=== PATIENT | male | born 1955 | race Caucasian/White ===

== ENCOUNTER 2022-05-26 09:35 | Day surgery (SDC) | payer OTHER ==
[2022-05-21 12:09] LABS: BASOPHILS % (AUTO) 0.7 % (0-1); EOSINOPHILS # (AUTO) 0.3 X10'3 (0-0.9); EOSINOPHILS % (AUTO) 5.7 % (0-6); LYMPHOCYTES # (AUTO) 2.2 X10'3 (1.1-4.8); LYMPHOCYTES % (AUTO) 39.6 % (21-51); MEAN CORPUSCULAR HEMOGLOBIN 33.1 PG (27.0-31.0); MEAN CORPUSCULAR HGB CONC 35.3 g/dL (33.0-36.5); MEAN CORPUSCULAR VOLUME 93.7 FL (78-98); MEAN PLATELET VOLUME 8.4 FL (7.4-10.4); MONOCYTES # (AUTO) 0.8 X10'3 (0-0.9); MONOCYTES % (AUTO) 13.4 % (2-12); NEUTROPHILS # (AUTO) 2.3 X10'3 (1.8-7.7); NEUTROPHILS % (AUTO) 40.6 % (42-75); PRE OP HEMATOCRIT 42.2 % (42.0-52.0); PRE OP HEMOGLOBIN 14.9 g/dL (14.0-17.9); PRE OP PLATELET COUNT 189 X10'3 (140-440); RED CELL DISTRIBUTION WIDTH 13.1 % (11.5-14.5)
[2022-05-21 12:15] LABS: ALBUMIN 3.7 G/DL (3.4-5.0); ALBUMIN/GLOBULIN RATIO 1.1 (1.1-1.5); ALKALINE PHOSPHATASE 54 IU/L (46-116); BLOOD UREA NITROGEN 18 MG/DL (7-18); BUN/CREATININE RATIO 21.7 (5.4-32.0); CALCIUM 8.8 MG/DL (8.5-10.1); CHLORIDE 108 MMOL/L (99-107); CREATININE 0.83 MG/DL (0.60-1.10); PRE OP ALT 21 U/L (30-65); PRE OP ANION GAP 7 (8-16); PRE OP AST 14 U/L (10-37); PRE OP BILIRUB, TOTAL 0.5 MG/DL (0.0-1.0); PRE OP GLUCOSE 102 MG/DL (70-104); PRE OP POTASSIUM 4.2 MMOL/L (3.4-5.1); PRE OP SODIUM 141 MMOL/L (135-145); TOTAL CARBON DIOXIDE 26.3 MMOL/L (24-32); TOTAL PROTEIN 7.1 G/DL (6.4-8.2); eGFR > 90 ML/MIN
[~2022-05-26] VITALS: Ht 177.8 cm; Wt 108.0 kg
[2022-05-26] VITALS (14 sets, daily range): BP systolic 116–147; BP diastolic 65–95
[~2022-05-26 09:35] MED LIST: LIDOcaine 1% W/epiNEPHrine 1:100,000 20ml vial ONE; SAW450CA7 PO; TERB250T89 PO; ceFAZolin inj. 2,000 MG in dextrose 5%-water 100 ML IV ONE; cocaine 4% topical solution 4ml bottle ONE; famotidine 20mg tablet PO ONE; mupirocin 2% ointment 22GM ONE; oxymetazoline 15 ML nasal spray NS ONE; ringers solution, lacted 1,000 ML IV SCH
[2022-05-26] MEDS ORDERED: morphine 2 MG/ML inj. syringe IV PRN (11:15)
[2022-05-26] MEDS ORDERED: ondansetron/PF 4mg/2ml inj IV PRN (11:15)
[2022-05-26] MEDS ORDERED: ringers solution, lacted 1,000 ML IV SCH (11:15)
[2022-05-26] MEDS ORDERED: meperidine/PF 25mg/ml syringe IV PRN ×3 (11:15)
[2022-05-26] MEDS ORDERED: morphine 4 MG/ML inj SYRINge IV PRN (11:15)
[2022-05-26] MEDS ORDERED: proCHLORperazine 10 MG/2 ml inj IV PRN (11:15)
[2022-05-26] MEDS ORDERED: BUPIVAcaine/PF 2.5 mg/ml (0.25%) 30ml vial ONE (11:19)
[2022-05-26] MEDS ORDERED: LIDOcaine 1% 30ml preserv. free vial ONE (11:19)
[2022-05-26] MEDS ORDERED: midazolam 1 mg/ML 2ml injection ONE (11:30)
[2022-05-26] MEDS ORDERED: fentaNYL /PF 50mcg/ml 5ml ampule ONE (11:30)
[2022-05-26] MEDS ORDERED: LIDOcaine 2% (20mg/ml) 5ml vial ONE (11:31)
[2022-05-26] MEDS ORDERED: propofol inj 20 ML IV ONE (11:31)
[2022-05-26] MEDS ORDERED: sevoflurane 250ml liquid IH ONE (11:33)
[2022-05-26] MEDS ORDERED: ondansetron/PF 4mg/2ml inj ONE (11:33)
[2022-05-26] MEDS ORDERED: dexamethasone sod phosphate 10mg/ml inj ONE (11:33)
[2022-05-26] MEDS ORDERED: glycopyrrolate 0.2mg/ml inj ONE (11:33)
[2022-05-26] MEDS ORDERED: neostigmine methylsulfate 1 MG/ML 10ml vial ONE (11:33)
[2022-05-26] MEDS ORDERED: acetaminophen 1000 MG/100ml vial IV ONE (11:33)
[2022-05-26] MEDS ORDERED: rocuronium 10mg/ml inj IV ONE (11:43)
[2022-05-26] MEDS ORDERED: HYDROcodone/acetaminophen 5mg/325mg tablet PO PRN (13:15)
--- NOTE | 2022-05-26 13:20 | NUR ---
Received from OR via [facility] , accompanied by Anesthesiologist DR MCCORMACK and report given by Anesthesiolgist. PT PRESENTS WITH PIV 20G RIGHT WRIST, 3 ABD BANDAIDS, VSS. Addendum: 05/26/22 at 1328 by Evon Bright RN, RN Amended: Links added.
--- NOTE | 2022-05-26 15:20 | NUR ---
ALL DISCHARGE CRITERIA HAS BEEN MET. VSS, PAIN AT A TOLERABLE LEVEL, VOIDING AND ABLE TO SAFELY AMBULATE AND TRANSFER SELF. IV TAKEN OUT WITHOUT ANY COMPLICATIONS. ALL DISCHARGE INSTRUCTIONS COVERED WITH PATIENT AND ALL QUESTIONS ANSWERED. PATIENT TAKEN OUT VIA WHEELCHAIR TO PERSONAL VEHICLE WHERE FAMILY/FRIEND DROVE PATIENT HOME. Addendum: 05/26/22 at 1529 by Evon Bright RN, RN Amended: Links added.
== END 2022-05-26 15:20 | disposition home or self-care (01) ==
LOC: PAS 09:35
PROVIDERS: ATTEND Surgery
DX: K40.91 Unilateral inguinal hernia, without obstruction or gangrene, recurrent (principal); Z79.899 Other long term (current) drug therapy; Z98.890 Other specified postprocedural states; Z96.653 Presence of artificial knee joint, bilateral; Z96.641 Presence of right artificial hip joint; M19.90 Unspecified osteoarthritis, unspecified site
CPT/HCPCS: 36415; 49651; 80053; 82948; 85025; 87811; 93005; C1781; J0131; J0690; J1100; J2250; J2405; J2704; J2710; J3010; J3490; J7030; J7060; J7120; S2900; Z7506; Z7508; Z7512; A4215; A4618

== ENCOUNTER 2022-08-15 22:33 | Inpatient (IN) | payer BC, OTHER ==
[~2022-08-15] VITALS: Ht 177.8 cm; Wt 109.1 kg
[~2022-08-15 22:33] MED LIST changes: -LIDOcaine 1% W/epiNEPHrine 1:100,000 20ml vial ONE; -ceFAZolin inj. 2,000 MG in dextrose 5%-water 100 ML IV ONE; -cocaine 4% topical solution 4ml bottle ONE; -famotidine 20mg tablet PO ONE; -mupirocin 2% ointment 22GM ONE; -oxymetazoline 15 ML nasal spray NS ONE; -ringers solution, lacted 1,000 ML IV SCH
[2022-08-15] MEDS ORDERED: acetaminophen 325mg tablet PO ONE (23:25)
[2022-08-15] MEDS ORDERED: vancomycin/NS 1 GM ADD-VANTAGE 250 ML IV ONE (23:45)
[2022-08-16 00:18] LABS: ALANINE AMINOTRANSFERASE 68 U/L (12-78); ALBUMIN 2.6 G/DL (3.4-5.0); ALBUMIN/GLOBULIN RATIO 0.6 (1.1-1.5); ALKALINE PHOSPHATASE 134 IU/L (46-116); ANION GAP 12 (8-16); ASPARTATE AMINO TRANSFERASE 34 U/L (10-37); BILIRUBIN,TOTAL 1.1 MG/DL (0.1-1.0); BLOOD UREA NITROGEN 19 MG/DL (7-18); BUN/CREATININE RATIO 15.7 (5.4-32.0); CALCIUM 8.7 MG/DL (8.5-10.1); CHLORIDE 101 MMOL/L (99-107); CREATININE 1.21 MG/DL (0.60-1.10); GLUCOSE 145 MG/DL (70-104); POTASSIUM 3.1 MMOL/L (3.5-5.1); SODIUM 137 MMOL/L (135-145); TOTAL CARBON DIOXIDE 23.6 MMOL/L (24-32); TOTAL PROTEIN 7.1 G/DL (6.4-8.2); eGFR 60 ML/MIN
[2022-08-16] MEDS ORDERED: normal saline 1000ml 1,000 ML IV ONE ×3 (00:20)
[2022-08-16] MEDS ORDERED: POTASSIUM BICARB 20meq eff tab 20 MEQ TABLET.EFF PO ONE (00:25)
[2022-08-16] MEDS ORDERED: iohexol 350MG/ML 100ml bottle IV ONE (00:28)
[2022-08-16 00:29] LABS: CLARITY,URINE SLIGHTLY CLOUDY (Clear); GLUCOSE, URINE NEGATIVE (Neg); KETONES,URINE TRACE mg/dl (Neg); LEUKOCYTE ESTERASE ,URINE NEGATIVE (Neg); NITRITES, URINE NEGATIVE (Neg); OCCULT BLOOD,URINE LARGE (Neg); PROTEIN,URINE 100 mg/dl (Neg)
[2022-08-16 00:46] LABS: COLOR,URINE DARK YELLOW (Yellow); UA COLLECTION TYPE CLN CATCH MIDSTREAM
[2022-08-16 00:47] LABS: AMORPHOUS URATES 1+; BACTERIA,URINE FEW /HPF (Neg); RENAL CELLS, URINE FEW /HPF; SQUAMOUS EPITHELIAL CELL,UR FEW /LPF (FEW); TRANSITIONAL EPI CELLS,URINE FEW /HPF; WBC,URINE 0-4 /HPF (0-4)
[2022-08-16 00:48] LABS: CELLULAR CAST 0-4 /LPF (NEGATIVE); COARSE GRANULAR CAST 0-3 /LPF (NEGATIVE); MUCUS STRANDS MANY /LPF (Neg)
[2022-08-16 01:02] LABS: BASOPHILS % (AUTO) 0.4 % (0-1); EOSINOPHILS # (AUTO) 0.1 X10'3 (0-0.9); EOSINOPHILS % (AUTO) 1.9 % (0-6); HEMATOCRIT 38.8 % (42.0-52.0); HEMOGLOBIN 13.9 g/dl (14.0-17.9); LYMPHOCYTES # (AUTO) 0.6 X10'3 (1.1-4.8); LYMPHOCYTES % (AUTO) 19.4 % (21-51); MEAN CORPUSCULAR HGB CONC 35.7 g/dL (33.0-36.5); MEAN CORPUSCULAR VOLUME 92.5 FL (78-98); MEAN PLATELET VOLUME 8.7 FL (7.4-10.4); MONOCYTES # (AUTO) 0.1 X10'3 (0-0.9); NEUTROPHILS # (AUTO) 2.2 X10'3 (1.8-7.7); NEUTROPHILS % (AUTO) 76.3 % (42-75); PLATELET COUNT 155 X10'3 (140-440); RED CELL DISTRIBUTION WIDTH 12.5 % (11.5-14.5); WHITE BLOOD COUNT 2.9 X10'3 (4.5-11.0)
[2022-08-16 01:03] LABS: ABG BASE EXCESS 1.3 mmol/L (-2.0-2.0); ABG HCO3 23.2 mmol/L (22.0-26.0); ABG OXYGEN SATURATION 91.5 % (94-97); ABG PCO2 (T) 30.1 mmHg (35.0-48.0); ABG PO2 (T) 62.4 mmHg (75.0-100.0); ALLEN'S TEST POSITIVE; FCOHb 0.5 % (0.0-3.9); FMetHb 0.3 % (0.0-1.5); FO2Hb 90.8 % (94-97); PATIENT TEMPERATURE 37.9; TOTAL HEMOGLOBIN 13.1 G/dl (14.0-17.9)
[2022-08-16 02:10] LABS: CREATINE KINASE 28 U/L (39-308)
[2022-08-16] MEDS: normal saline 1000ml 1,000 ML IV SCH ×4 (02:35→16:42)
[2022-08-16] MEDS ORDERED: potassium Cl 40MEQ/1/2NS 520ml 520 ML IV PRN (05:35)
[2022-08-16] MEDS ORDERED: magnesium Cl slow-release 64mg tablet PO PRN (05:35)
[2022-08-16] MEDS ORDERED: acetaminophen 325mg tablet PO PRN (05:35)
[2022-08-16] MEDS ORDERED: magnesium 4gm in 100ml NS 100 ML IV PRN (05:35)
[2022-08-16] MEDS ORDERED: ondansetron/PF 4mg/2ml inj IV PRN (05:35)
[2022-08-16 05:40] LABS: TOTAL CELLS COUNTED 100
[2022-08-16 05:41] LABS: PLATELET ESTIMATE NORMAL
[2022-08-16] MEDS ORDERED: piperacillin/tazo 4.5gm/100ml 100 ML IV ONE ×3 (06:20→09:00)
[2022-08-16] MEDS: K and/or MAG REPLACEMENT MC SCH ×2 (08:00→20:00)
[2022-08-16] MEDS: heparin, porcine 5000 units/ml vial SQ SCH ×2 (08:00→20:00)
[2022-08-16] MEDS: cefepime 1GM/NS ADD-VANTAGE 100 ML IV SCH ×2 (08:28→19:05)
[2022-08-16] MEDS: vancomycin/NS 1 GM ADD-VANTAGE 250 ML IV SCH ×2 (09:27→20:00)
--- NOTE | 2022-08-16 13:30 | NUR ---
DIRECT MARKETING MANAGER AT BEDSIDE.
--- NOTE | 2022-08-16 15:28 | NUR ---
DR SCHWARTZ AT BEDSIDE.
--- NOTE | 2022-08-16 15:31 | NUR ---
PT IS HAVING CHILLS TEMP 99.[address] SCHWARTZ ,HR 117 SINUS TACH ,EVEN THOUGH THE MONITOR SAY AFIB ,PT RYTHM IS SINUS TACH.
[2022-08-16] MEDS: acetaminophen 325mg tablet PO PRN ×2 (15:35→21:36)
--- NOTE | 2022-08-16 15:42 | NUR ---
Informed dr graf that pt k+ was 3.1 last night and was replaced by 40 mEQ PO K+,NO AM labs were ordered,as per MD VERBAL Order for CBC,CMP AND MG LEVEL STAT.
[2022-08-16 16:13] LABS: BASOPHILS % (AUTO) 0.4 % (0-1); EOSINOPHILS # (AUTO) 0.1 X10'3 (0-0.9); EOSINOPHILS % (AUTO) 0.7 % (0-6); HEMATOCRIT 33.9 % (42.0-52.0); HEMOGLOBIN 12.1 g/dl (14.0-17.9); LYMPHOCYTES # (AUTO) 0.8 X10'3 (1.1-4.8); LYMPHOCYTES % (AUTO) 7.5 % (21-51); MEAN CORPUSCULAR HEMOGLOBIN 32.7 PG (27.0-31.0); MEAN CORPUSCULAR HGB CONC 35.6 g/dL (33.0-36.5); MEAN PLATELET VOLUME 8.1 FL (7.4-10.4); MONOCYTES % (AUTO) 9.1 % (2-12); NEUTROPHILS # (AUTO) 8.8 X10'3 (1.8-7.7); NEUTROPHILS % (AUTO) 82.3 % (42-75); PLATELET COUNT 177 X10'3 (140-440); RED BLOOD COUNT 3.69 X10'6 (4.70-6.10); RED CELL DISTRIBUTION WIDTH 12.6 % (11.5-14.5); WHITE BLOOD COUNT 10.7 X10'3 (4.5-11.0)
[2022-08-16 16:28] LABS: ALANINE AMINOTRANSFERASE 84 U/L (12-78); ALBUMIN 2.2 G/DL (3.4-5.0); ALBUMIN/GLOBULIN RATIO 0.6 (1.1-1.5); ALKALINE PHOSPHATASE 123 IU/L (46-116); ANION GAP 9 (8-16); ASPARTATE AMINO TRANSFERASE 53 U/L (10-37); BILIRUBIN,TOTAL 0.9 MG/DL (0.1-1.0); BLOOD UREA NITROGEN 14 MG/DL (7-18); BUN/CREATININE RATIO 13.7 (5.4-32.0); CHLORIDE 106 MMOL/L (99-107); CREATININE 1.02 MG/DL (0.60-1.10); GLUCOSE 128 MG/DL (70-104); MAGNESIUM 1.7 MG/DL (1.5-2.4); POTASSIUM 3.3 MMOL/L (3.5-5.1); SODIUM 138 MMOL/L (135-145); TOTAL CARBON DIOXIDE 22.8 MMOL/L (24-32); TOTAL PROTEIN 6.1 G/DL (6.4-8.2); eGFR 74 ML/MIN
[2022-08-16] MEDS: potassium Cl 20 mEq SR tablet PO PRN (17:04)
[2022-08-16] MEDS ORDERED: temazepam 15mg capsule PO PRN (21:00)
[2022-08-16] MEDS ORDERED: POTASSIUM BICARB 20meq eff tab 20 MEQ TABLET.EFF PO PRN (21:40)
[2022-08-16] MEDS: albuterol 2.5 MG/3 ML nebule NEB PRN (22:49)
[2022-08-17] MEDS: normal saline 1000ml 1,000 ML IV SCH ×3 (01:35→21:35)
--- NOTE | 2022-08-17 04:17 | NUR ---
PAGER ID: [phone] MESSAGE: Jimmie Toan in ER 5, DX sepsis, requesting ibuprofen 600 mg for chronic 8/10 neck pain. Kimberlee MONSALVE [phone]
[2022-08-17] MEDS ORDERED: ibuprofen 200mg tablet PO ONE (04:25)
[2022-08-17] MEDS: albuterol 2.5 MG/3 ML nebule NEB PRN (04:27)
[2022-08-17] MEDS ORDERED: VANCOMYCIN LEVEL IV ONE (07:30)
[2022-08-17 07:31] LABS: ALANINE AMINOTRANSFERASE 77 U/L (12-78); ALBUMIN/GLOBULIN RATIO 0.5 (1.1-1.5); ALKALINE PHOSPHATASE 113 IU/L (46-116); ANION GAP 10 (8-16); ASPARTATE AMINO TRANSFERASE 44 U/L (10-37); BILIRUBIN,TOTAL 0.8 MG/DL (0.1-1.0); BLOOD UREA NITROGEN 11 MG/DL (7-18); BUN/CREATININE RATIO 11.1 (5.4-32.0); CALCIUM 7.8 MG/DL (8.5-10.1); CHLORIDE 105 MMOL/L (99-107); CREATININE 0.99 MG/DL (0.60-1.10); GLUCOSE 105 MG/DL (70-104); SODIUM 137 MMOL/L (135-145); TOTAL CARBON DIOXIDE 21.7 MMOL/L (24-32); TOTAL PROTEIN 5.7 G/DL (6.4-8.2); VANCOMYCIN,TROUGH 7.8 UG/ML (6.0-14.0); eGFR 76 ML/MIN
[2022-08-17 07:35] VITALS: BP 122/75
[2022-08-17] MEDS: K and/or MAG REPLACEMENT MC SCH ×2 (08:00→20:00)
[2022-08-17 08:51] LABS: BASOPHILS % (AUTO) 0.2 % (0-1); EOSINOPHILS # (AUTO) 0.1 X10'3 (0-0.9); EOSINOPHILS % (AUTO) 1.1 % (0-6); HEMATOCRIT 32.5 % (42.0-52.0); HEMOGLOBIN 11.6 g/dl (14.0-17.9); LYMPHOCYTES # (AUTO) 0.9 X10'3 (1.1-4.8); LYMPHOCYTES % (AUTO) 10.1 % (21-51); MEAN CORPUSCULAR HGB CONC 35.8 g/dL (33.0-36.5); MEAN PLATELET VOLUME 8.1 FL (7.4-10.4); MONOCYTES # (AUTO) 0.4 X10'3 (0-0.9); MONOCYTES % (AUTO) 4.8 % (2-12); NEUTROPHILS # (AUTO) 7.2 X10'3 (1.8-7.7); NEUTROPHILS % (AUTO) 83.8 % (42-75); PLATELET COUNT 173 X10'3 (140-440); RED BLOOD COUNT 3.53 X10'6 (4.70-6.10); RED CELL DISTRIBUTION WIDTH 12.9 % (11.5-14.5); WHITE BLOOD COUNT 8.6 X10'3 (4.5-11.0)
[2022-08-17] MEDS: heparin, porcine 5000 units/ml vial SQ SCH ×2 (09:01→21:05)
[2022-08-17 11:00] VITALS: BP 124/74
[2022-08-17] MEDS: VANCOmycin 1250MG/NS 250ml Bag 250 ML IV SCH ×2 (11:09→21:00)
[2022-08-17] MEDS: potassium Cl 20 mEq SR tablet PO PRN ×3 (11:16→22:56)
[2022-08-17] MEDS: cefepime 1GM/NS ADD-VANTAGE 100 ML IV SCH ×2 (14:07→22:54)
[2022-08-17] MEDS: acetaminophen 325mg tablet PO PRN (17:33)
--- NOTE | 2022-08-17 18:30 | NUR ---
Patient in room [facility] 350. I have received report from MIKHAIL MONSALVE and had the opportunity to ask questions and assume patient care.
[2022-08-17 19:00] VITALS: BP 144/71
[2022-08-17 23:00] VITALS: BP 135/82
[2022-08-18] MEDS: acetaminophen 325mg tablet PO PRN ×2 (05:16→12:02)
[2022-08-18] MEDS: normal saline 1000ml 1,000 ML IV SCH (05:19)
[2022-08-18 06:00] VITALS: BP 135/90
--- NOTE | 2022-08-18 06:32 | NUR ---
Problems reprioritized. Patient report given, questions answered & plan of care reviewed with MIKHAIL MONSALVE.
[2022-08-18 06:38] LABS: BASOPHILS % (AUTO) 0.3 % (0-1); EOSINOPHILS # (AUTO) 0.2 X10'3 (0-0.9); EOSINOPHILS % (AUTO) 1.4 % (0-6); HEMATOCRIT 34.3 % (42.0-52.0); HEMOGLOBIN 11.9 g/dl (14.0-17.9); LYMPHOCYTES # (AUTO) 1.4 X10'3 (1.1-4.8); LYMPHOCYTES % (AUTO) 13.1 % (21-51); MEAN CORPUSCULAR HEMOGLOBIN 32.6 PG (27.0-31.0); MEAN CORPUSCULAR HGB CONC 34.7 g/dL (33.0-36.5); MEAN CORPUSCULAR VOLUME 94.2 FL (78-98); MEAN PLATELET VOLUME 8.8 FL (7.4-10.4); MONOCYTES # (AUTO) 1.4 X10'3 (0-0.9); MONOCYTES % (AUTO) 12.9 % (2-12); NEUTROPHILS # (AUTO) 7.9 X10'3 (1.8-7.7); NEUTROPHILS % (AUTO) 72.3 % (42-75); PLATELET COUNT 199 X10'3 (140-440); RED BLOOD COUNT 3.64 X10'6 (4.70-6.10); WHITE BLOOD COUNT 10.9 X10'3 (4.5-11.0)
[2022-08-18 07:07] LABS: ALANINE AMINOTRANSFERASE 68 U/L (12-78); ALBUMIN/GLOBULIN RATIO 0.5 (1.1-1.5); ALKALINE PHOSPHATASE 141 IU/L (46-116); ANION GAP 10 (8-16); ASPARTATE AMINO TRANSFERASE 30 U/L (10-37); BILIRUBIN,TOTAL 1.2 MG/DL (0.1-1.0); BLOOD UREA NITROGEN 9 MG/DL (7-18); BUN/CREATININE RATIO 9.7 (5.4-32.0); CHLORIDE 106 MMOL/L (99-107); CREATININE 0.93 MG/DL (0.60-1.10); GLUCOSE 102 MG/DL (70-104); POTASSIUM 3.4 MMOL/L (3.5-5.1); SODIUM 137 MMOL/L (135-145); TOTAL CARBON DIOXIDE 20.6 MMOL/L (24-32); eGFR 82 ML/MIN
[2022-08-18] MEDS: cefepime 1GM/NS ADD-VANTAGE 100 ML IV SCH (07:55)
[2022-08-18] MEDS: heparin, porcine 5000 units/ml vial SQ SCH (07:57)
[2022-08-18] MEDS: K and/or MAG REPLACEMENT MC SCH (08:00)
[2022-08-18] MEDS: potassium Cl 20 mEq SR tablet PO PRN (09:40)
[2022-08-18] MEDS: VANCOmycin 1250MG/NS 250ml Bag 250 ML IV SCH (09:40)
[2022-08-18 10:00] VITALS: BP 149/95
[2022-08-18] MEDS ORDERED: LEVO750T68 PO (11:30)
[2022-08-18] MEDS ORDERED: VANCOMYCIN LEVEL IV ONE (20:30)
== END 2022-08-18 15:30 | disposition home or self-care (01) | DRG 871 ==
LOC: ER 22:34 → ED HOLD 08-16 05:37 → EDBEDREQ 08-16 20:15 → SUR 3N 08-17 07:15
PROVIDERS: ADMIT Internal Medicine; ATTEND Family Medicine
PROC: B32T1ZZ Computerized Tomography (CT Scan) of Left Pulmonary Artery using Low Osmolar Contrast (ICD-10-PCS; 2022-08-16)
PROC: B3201ZZ Computerized Tomography (CT Scan) of Thoracic Aorta using Low Osmolar Contrast (ICD-10-PCS; 2022-08-16)
PROC: B32S1ZZ Computerized Tomography (CT Scan) of Right Pulmonary Artery using Low Osmolar Contrast (ICD-10-PCS; 2022-08-16)
PROC: 5A09357 Assistance with Respiratory Ventilation, Less than 24 Consecutive Hours, Continuous Positive Airway Pressure (ICD-10-PCS; principal; 2022-08-17)
DX: A41.9 Sepsis, unspecified organism (principal); J96.01 Acute respiratory failure with hypoxia; N17.0 Acute kidney failure with tubular necrosis; D70.9 Neutropenia, unspecified; N18.30 Chronic kidney disease, stage 3 unspecified; F10.90 Alcohol use, unspecified, uncomplicated; E87.6 Hypokalemia; F12.90 Cannabis use, unspecified, uncomplicated; K76.9 Liver disease, unspecified; Z20.822 Contact with and (suspected) exposure to COVID-19; R79.89 Other specified abnormal findings of blood chemistry; R80.9 Proteinuria, unspecified
CPT/HCPCS: 36415; 36600; 71045; 71275; 74176; 80053; 80202; 81001; 81003; 82550; 82803; 83605; 83735; 83880; 84145; 84484; 85007; 85018; 85025; 87040; 87502; 87503; 87635; 93306; 94640; 94760; 97116; 97161; 99285; A4615; C9803; G0378; J0692; J1644; J2543; J3370; J3490; J7030; Q9967

== ENCOUNTER 2022-08-31 09:52 | Inpatient (IN) | payer OTHER, BC ==
[~2022-08-31] VITALS: Ht 177.8 cm; Wt 104.1 kg
[~2022-08-31 09:52] MED LIST changes: +LEVO750T68 PO; -TERB250T89 PO
[2022-08-31] MEDS ORDERED: acetaminophen 325mg tablet PO STA (10:41)
[2022-08-31] MEDS ORDERED: normal saline 1000ML IV soln IV ONE (10:45)
[2022-08-31] MEDS ORDERED: CefTRIAXone 2gm/D5W 50ml BAG 50 ML IV ONE (10:45)
[2022-08-31 11:00] LABS: BASOPHILS % (AUTO) 0.6 % (0-1); EOSINOPHILS % (AUTO) 0.2 % (0-6); HEMATOCRIT 34.4 % (42.0-52.0); HEMOGLOBIN 11.7 g/dl (14.0-17.9); LYMPHOCYTES # (AUTO) 0.6 X10'3 (1.1-4.8); LYMPHOCYTES % (AUTO) 9.4 % (21-51); MEAN CORPUSCULAR HEMOGLOBIN 30.9 PG (27.0-31.0); MEAN CORPUSCULAR HGB CONC 33.9 g/dL (33.0-36.5); MEAN CORPUSCULAR VOLUME 90.9 FL (78-98); MEAN PLATELET VOLUME 7.2 FL (7.4-10.4); MONOCYTES # (AUTO) 0.1 X10'3 (0-0.9); MONOCYTES % (AUTO) 0.8 % (2-12); PLATELET COUNT 523 X10'3 (140-440); RED BLOOD COUNT 3.78 X10'6 (4.70-6.10); RED CELL DISTRIBUTION WIDTH 12.8 % (11.5-14.5); WHITE BLOOD COUNT 6.8 X10'3 (4.5-11.0)
[2022-08-31 11:23] LABS: ALANINE AMINOTRANSFERASE 53 U/L (12-78); ALBUMIN 2.3 G/DL (3.4-5.0); ALBUMIN/GLOBULIN RATIO 0.4 (1.1-1.5); ALKALINE PHOSPHATASE 189 IU/L (46-116); ANION GAP 13 (8-16); ASPARTATE AMINO TRANSFERASE 41 U/L (10-37); BLOOD UREA NITROGEN 15 MG/DL (7-18); CALCIUM 8.7 MG/DL (8.5-10.1); CHLORIDE 99 MMOL/L (99-107); CREATININE 1.07 MG/DL (0.60-1.10); GLUCOSE 139 MG/DL (70-104); POTASSIUM 3.5 MMOL/L (3.5-5.1); SODIUM 133 MMOL/L (135-145); TOTAL PROTEIN 7.7 G/DL (6.4-8.2); eGFR 69 ML/MIN
[2022-08-31] MEDS ORDERED: iohexol 350MG/ML 100ml bottle IV ONE (11:55)
[2022-08-31 12:07] LABS: CLARITY,URINE CLEAR (Clear); COLOR,URINE YELLOW (Yellow); GLUCOSE, URINE NEGATIVE (Neg); KETONES,URINE NEGATIVE (Neg); LEUKOCYTE ESTERASE ,URINE NEGATIVE (Neg); NITRITES, URINE NEGATIVE (Neg); OCCULT BLOOD,URINE TRACE-INTACT (Neg); PROTEIN,URINE 30 mg/dl (Neg)
[2022-08-31 12:09] LABS: UA COLLECTION TYPE NON-SPECIFIED
[2022-08-31 12:12] LABS: WBC,URINE 0-4 /HPF (0-4)
[2022-08-31 12:13] LABS: BACTERIA,URINE NONE SEEN /HPF (Neg); MUCUS STRANDS NONE SEEN /LPF (Neg); RBC,URINE 0-2 /HPF (0-2); SQUAMOUS EPITHELIAL CELL,UR MODERATE /LPF (FEW)
[2022-08-31] MEDS ORDERED: SAW500CA11 PO (13:09)
--- NOTE | 2022-08-31 16:40 | NUR ---
IR at bedside
[2022-08-31 16:45] VITALS: BP 111/64
[2022-08-31 16:57] VITALS: BP 104/64
[2022-08-31] MEDS ORDERED: potassium Cl 40MEQ/1/2NS 520ml 520 ML IV PRN (17:05)
[2022-08-31] MEDS ORDERED: acetaminophen 325mg tablet PO PRN (17:05)
[2022-08-31] MEDS ORDERED: magnesium 4gm in 100ml NS 100 ML IV PRN (17:05)
[2022-08-31] MEDS ORDERED: magnesium hydroxide 30ml (MOM) UD suspension PO PRN (17:05)
[2022-08-31] MEDS ORDERED: ondansetron/PF 4mg/2ml inj IV PRN (17:05)
[2022-08-31] MEDS ORDERED: potassium Cl 20 mEq SR tablet PO PRN ×2 (17:05)
[2022-08-31] MEDS ORDERED: HYDROcodone/acetaminophen 5mg/325mg tablet PO PRN (17:05)
[2022-08-31] MEDS ORDERED: magnesium Cl slow-release 64mg tablet PO PRN (17:05)
[2022-08-31] MEDS ORDERED: mag hydrox/Alum hydrox/simeth 30ml oral suspension PO PRN (17:05)
--- NOTE | 2022-08-31 17:06 | NUR ---
IR drained abd abscess in ER bed 16, patient tolerated procedure well. Documentation regarding procedure charted by .
[2022-08-31] MEDS: normal saline 1000ml 1,000 ML IV SCH ×2 (17:50→22:00)
[2022-08-31] MEDS: docusate sod 100mg capsule PO SCH (19:56)
[2022-08-31 22:00] VITALS: BP 104/64
[2022-08-31] MEDS: piperacillin/tazo 3.375gm/50ml 50 ML IV SCH (23:44)
[2022-09-01] VITALS: BP 110/66
[2022-09-01 06:00] VITALS: BP 103/67
[2022-09-01 06:51] LABS: BASOPHILS # (AUTO) 0.1 X10'3 (0-0.2); BASOPHILS % (AUTO) 0.5 % (0-1); EOSINOPHILS # (AUTO) 0.1 X10'3 (0-0.9); EOSINOPHILS % (AUTO) 0.4 % (0-6); HEMATOCRIT 29.3 % (42.0-52.0); HEMOGLOBIN 9.8 g/dl (14.0-17.9); LYMPHOCYTES # (AUTO) 1.5 X10'3 (1.1-4.8); LYMPHOCYTES % (AUTO) 11.4 % (21-51); MEAN CORPUSCULAR HEMOGLOBIN 31.1 PG (27.0-31.0); MEAN CORPUSCULAR HGB CONC 33.4 g/dL (33.0-36.5); MEAN CORPUSCULAR VOLUME 93.2 FL (78-98); MEAN PLATELET VOLUME 7.6 FL (7.4-10.4); MONOCYTES # (AUTO) 1.2 X10'3 (0-0.9); MONOCYTES % (AUTO) 9.2 % (2-12); NEUTROPHILS # (AUTO) 10.2 X10'3 (1.8-7.7); NEUTROPHILS % (AUTO) 78.5 % (42-75); PLATELET COUNT 418 X10'3 (140-440); RED BLOOD COUNT 3.14 X10'6 (4.70-6.10); RED CELL DISTRIBUTION WIDTH 13.1 % (11.5-14.5)
--- NOTE | 2022-09-01 06:51 | NUR ---
Problems reprioritized. Patient report given, questions answered & plan of care reviewed with GUNNAR. Addendum: 09/01/22 at 0651 by Eze Smith RN Amended: Links added.
[2022-09-01 07:08] LABS: ALANINE AMINOTRANSFERASE 35 U/L (12-78); ALBUMIN 1.8 G/DL (3.4-5.0); ALBUMIN/GLOBULIN RATIO 0.4 (1.1-1.5); ALKALINE PHOSPHATASE 165 IU/L (46-116); ANION GAP 9 (8-16); ASPARTATE AMINO TRANSFERASE 27 U/L (10-37); BILIRUBIN,TOTAL 0.4 MG/DL (0.1-1.0); BLOOD UREA NITROGEN 14 MG/DL (7-18); BUN/CREATININE RATIO 17.3 (5.4-32.0); CALCIUM 8.2 MG/DL (8.5-10.1); CHLORIDE 105 MMOL/L (99-107); CREATININE 0.81 MG/DL (0.60-1.10); GLUCOSE 108 MG/DL (70-104); MAGNESIUM 2.1 MG/DL (1.5-2.4); POTASSIUM 3.3 MMOL/L (3.5-5.1); SODIUM 137 MMOL/L (135-145); TOTAL CARBON DIOXIDE 23.3 MMOL/L (24-32); TOTAL PROTEIN 6.3 G/DL (6.4-8.2); eGFR > 90 ML/MIN
[2022-09-01] MEDS: docusate sod 100mg capsule PO SCH ×2 (08:00→19:43)
[2022-09-01] MEDS ORDERED: CefTRIAXone/D5W-Rocephin 1gm 50 ML IV SCH (08:00)
[2022-09-01] MEDS: piperacillin/tazo 3.375gm/50ml 50 ML IV SCH ×3 (08:30→23:53)
[2022-09-01 10:00] VITALS: BP 109/71
[2022-09-01] MEDS: normal saline 1000ml 1,000 ML IV SCH ×2 (13:05→15:10)
[2022-09-01] MEDS: HYDROcodone/acetaminophen 10/325mg tab PO PRN ×2 (15:10→20:31)
[2022-09-01 18:00] VITALS: BP 131/74
[2022-09-01] MEDS ORDERED: metroNIDAZOLE-Flagyl 500mg/NS 100 ML IV SCH (18:00)
--- NOTE | 2022-09-01 22:44 | NUR ---
Student documentation: I have reviewed interventions, assessments performed and documented by Ute DELGADO.
[2022-09-01 23:21] VITALS: BP 101/61
[2022-09-02] MEDS: HYDROcodone/acetaminophen 10/325mg tab PO PRN ×2 (01:11→19:16)
[2022-09-02 06:00] VITALS: BP 109/74
[2022-09-02 07:13] LABS: BASOPHILS # (AUTO) 0.1 X10'3 (0-0.2); BASOPHILS % (AUTO) 0.8 % (0-1); EOSINOPHILS # (AUTO) 0.2 X10'3 (0-0.9); EOSINOPHILS % (AUTO) 1.9 % (0-6); HEMATOCRIT 29.9 % (42.0-52.0); HEMOGLOBIN 10.5 g/dl (14.0-17.9); LYMPHOCYTES # (AUTO) 2.1 X10'3 (1.1-4.8); LYMPHOCYTES % (AUTO) 24.7 % (21-51); MEAN CORPUSCULAR HEMOGLOBIN 32.3 PG (27.0-31.0); MEAN CORPUSCULAR HGB CONC 35.1 g/dL (33.0-36.5); MEAN CORPUSCULAR VOLUME 92.1 FL (78-98); MEAN PLATELET VOLUME 7.7 FL (7.4-10.4); MONOCYTES # (AUTO) 0.8 X10'3 (0-0.9); MONOCYTES % (AUTO) 9.3 % (2-12); NEUTROPHILS # (AUTO) 5.3 X10'3 (1.8-7.7); NEUTROPHILS % (AUTO) 63.3 % (42-75); PLATELET COUNT 461 X10'3 (140-440); RED BLOOD COUNT 3.24 X10'6 (4.70-6.10); RED CELL DISTRIBUTION WIDTH 13.2 % (11.5-14.5); WHITE BLOOD COUNT 8.3 X10'3 (4.5-11.0)
[2022-09-02 07:28] LABS: ALANINE AMINOTRANSFERASE 33 U/L (12-78); ALBUMIN 1.9 G/DL (3.4-5.0); ALBUMIN/GLOBULIN RATIO 0.4 (1.1-1.5); ALKALINE PHOSPHATASE 163 IU/L (46-116); ANION GAP 9 (8-16); ASPARTATE AMINO TRANSFERASE 27 U/L (10-37); BILIRUBIN,TOTAL 0.3 MG/DL (0.1-1.0); BLOOD UREA NITROGEN 12 MG/DL (7-18); CALCIUM 8.3 MG/DL (8.5-10.1); CHLORIDE 106 MMOL/L (99-107); GLUCOSE 105 MG/DL (70-104); MAGNESIUM 2.2 MG/DL (1.5-2.4); POTASSIUM 3.4 MMOL/L (3.5-5.1); SODIUM 139 MMOL/L (135-145); TOTAL CARBON DIOXIDE 23.8 MMOL/L (24-32); TOTAL PROTEIN 6.2 G/DL (6.4-8.2); eGFR > 90 ML/MIN
[2022-09-02] MEDS: docusate sod 100mg capsule PO SCH ×2 (08:00→19:53)
[2022-09-02] MEDS: piperacillin/tazo 3.375gm/50ml 50 ML IV SCH ×3 (08:42→23:55)
[2022-09-02] MEDS: normal saline 1000ml 1,000 ML IV SCH ×2 (09:05→16:54)
[2022-09-02 10:00] VITALS: BP 161/80
[2022-09-02 17:00] VITALS: BP 132/89
[2022-09-02] MEDS: temazepam 15mg capsule PO PRN (20:24)
[2022-09-02 22:00] VITALS: BP 132/75
[2022-09-03] MEDS: normal saline 1000ml 1,000 ML IV SCH ×2 (03:26→16:58)
--- NOTE | 2022-09-03 06:32 | NUR ---
Patient in room [facility] 358. I have received report from JAVIER RN and had the opportunity to ask questions and assume patient care.
[2022-09-03 06:44] LABS: BASOPHILS # (AUTO) 0.1 X10'3 (0-0.2); BASOPHILS % (AUTO) 0.9 % (0-1); EOSINOPHILS # (AUTO) 0.2 X10'3 (0-0.9); EOSINOPHILS % (AUTO) 2.2 % (0-6); HEMATOCRIT 31.1 % (42.0-52.0); HEMOGLOBIN 10.5 g/dl (14.0-17.9); LYMPHOCYTES # (AUTO) 1.9 X10'3 (1.1-4.8); MEAN CORPUSCULAR HEMOGLOBIN 31.6 PG (27.0-31.0); MEAN CORPUSCULAR HGB CONC 33.9 g/dL (33.0-36.5); MEAN CORPUSCULAR VOLUME 93.1 FL (78-98); MEAN PLATELET VOLUME 7.6 FL (7.4-10.4); MONOCYTES # (AUTO) 0.6 X10'3 (0-0.9); MONOCYTES % (AUTO) 7.1 % (2-12); NEUTROPHILS # (AUTO) 5.3 X10'3 (1.8-7.7); NEUTROPHILS % (AUTO) 65.8 % (42-75); PLATELET COUNT 467 X10'3 (140-440); RED BLOOD COUNT 3.34 X10'6 (4.70-6.10)
[2022-09-03 06:46] VITALS: BP 146/92
[2022-09-03 06:48] LABS: % IRON SATURATION 40 % (11-46); IRON 70 UG/DL (53-167); TOTAL IRON BINDING CAPACITY 175 UG/DL (259-388)
[2022-09-03 06:50] LABS: ALANINE AMINOTRANSFERASE 27 U/L (12-78); ALBUMIN 1.9 G/DL (3.4-5.0); ALBUMIN/GLOBULIN RATIO 0.4 (1.1-1.5); ALKALINE PHOSPHATASE 146 IU/L (46-116); ANION GAP 8 (8-16); ASPARTATE AMINO TRANSFERASE 22 U/L (10-37); BILIRUBIN,TOTAL 0.3 MG/DL (0.1-1.0); BLOOD UREA NITROGEN 6 MG/DL (7-18); BUN/CREATININE RATIO 8.7 (5.4-32.0); CALCIUM 8.5 MG/DL (8.5-10.1); CHLORIDE 108 MMOL/L (99-107); CREATININE 0.69 MG/DL (0.60-1.10); GLUCOSE 105 MG/DL (70-104); POTASSIUM 3.7 MMOL/L (3.5-5.1); SODIUM 140 MMOL/L (135-145); TOTAL PROTEIN 6.3 G/DL (6.4-8.2); eGFR > 90 ML/MIN
[2022-09-03 07:44] VITALS: BP 143/90
[2022-09-03] MEDS: docusate sod 100mg capsule PO SCH ×3 (07:55→21:54)
[2022-09-03] MEDS ORDERED: SAW PALMETTO 1000 MG PO SCH (08:00)
[2022-09-03] MEDS ORDERED: iohexol 300mg/ml 100ml inj. ONE (08:02)
[2022-09-03] MEDS: piperacillin/tazo 3.375gm/50ml 50 ML IV SCH ×2 (09:20→16:58)
[2022-09-03] MEDS ORDERED: tPA-cathflo 2 MG/2 ml IV flush ONE (09:30)
[2022-09-03] MEDS: HYDROcodone/acetaminophen 10/325mg tab PO PRN ×2 (11:20→21:55)
[2022-09-03 18:00] VITALS: BP 134/82
--- NOTE | 2022-09-03 18:31 | NUR ---
Problems reprioritized. Patient report given, questions answered & plan of care reviewed with LONNY MONSALVE.
[2022-09-03] MEDS: temazepam 15mg capsule PO PRN (21:54)
[2022-09-03 22:00] VITALS: BP 132/80
[2022-09-04] MEDS: piperacillin/tazo 3.375gm/50ml 50 ML IV SCH ×2 (00:51→07:41)
[2022-09-04] MEDS: normal saline 1000ml 1,000 ML IV SCH (01:12)
[2022-09-04 06:00] VITALS: BP 146/93
--- NOTE | 2022-09-04 06:16 | NUR ---
Problems reprioritized. Patient report given, questions answered & plan of care reviewed with Misti MONSALVE. Addendum: 09/04/22 at 0616 by Adelina Lew RN Amended: Links added.
[2022-09-04 06:21] LABS: BASOPHILS # (AUTO) 0.1 X10'3 (0-0.2); BASOPHILS % (AUTO) 0.9 % (0-1); EOSINOPHILS # (AUTO) 0.2 X10'3 (0-0.9); EOSINOPHILS % (AUTO) 1.9 % (0-6); HEMATOCRIT 30.9 % (42.0-52.0); HEMOGLOBIN 10.8 g/dl (14.0-17.9); LYMPHOCYTES # (AUTO) 2.1 X10'3 (1.1-4.8); LYMPHOCYTES % (AUTO) 22.6 % (21-51); MEAN CORPUSCULAR HEMOGLOBIN 31.7 PG (27.0-31.0); MEAN CORPUSCULAR HGB CONC 34.9 g/dL (33.0-36.5); MEAN CORPUSCULAR VOLUME 90.8 FL (78-98); MEAN PLATELET VOLUME 7.2 FL (7.4-10.4); MONOCYTES # (AUTO) 0.6 X10'3 (0-0.9); MONOCYTES % (AUTO) 6.5 % (2-12); NEUTROPHILS # (AUTO) 6.2 X10'3 (1.8-7.7); NEUTROPHILS % (AUTO) 68.1 % (42-75); PLATELET COUNT 486 X10'3 (140-440); RED CELL DISTRIBUTION WIDTH 13.1 % (11.5-14.5); WHITE BLOOD COUNT 9.2 X10'3 (4.5-11.0)
[2022-09-04 06:36] LABS: ALANINE AMINOTRANSFERASE 27 U/L (12-78); ALBUMIN/GLOBULIN RATIO 0.5 (1.1-1.5); ALKALINE PHOSPHATASE 134 IU/L (46-116); ANION GAP 8 (8-16); ASPARTATE AMINO TRANSFERASE 16 U/L (10-37); BILIRUBIN,TOTAL 0.3 MG/DL (0.1-1.0); BLOOD UREA NITROGEN 5 MG/DL (7-18); CALCIUM 8.3 MG/DL (8.5-10.1); CHLORIDE 107 MMOL/L (99-107); CREATININE 0.83 MG/DL (0.60-1.10); GLUCOSE 139 MG/DL (70-104); MAGNESIUM 1.8 MG/DL (1.5-2.4); POTASSIUM 3.5 MMOL/L (3.5-5.1); SODIUM 140 MMOL/L (135-145); TOTAL CARBON DIOXIDE 25.5 MMOL/L (24-32); TOTAL PROTEIN 6.4 G/DL (6.4-8.2); eGFR > 90 ML/MIN
--- NOTE | 2022-09-04 06:46 | NUR ---
Patient in room [facility] 358. I have received report from venice MONSALVE and had the opportunity to ask questions and assume patient care.
[2022-09-04] MEDS: docusate sod 100mg capsule PO SCH (07:41)
[2022-09-04] MEDS ORDERED: tPA-cathflo 2 MG/2 ml IV flush ONE (08:50)
[2022-09-04 10:00] VITALS: BP 132/81
[2022-09-04] MEDS: HYDROcodone/acetaminophen 10/325mg tab PO PRN (12:44)
[2022-09-04] MEDS ORDERED: HYDR-3965 PO (13:00)
[2022-09-04] MEDS ORDERED: METR-159 PO (13:00)
[2022-09-04] MEDS ORDERED: LEVO750T68 PO (13:00)
--- NOTE | 2022-09-04 17:25 | NUR ---
patient up and about given TPA by DIABETIC EDUCATOR Tyrone hidalgo for blokage in CADEN drain. Drained 70mls sero sang. patient instructed on CADEN care. All Dc instructions given to patient . patient Dc home via private car to home in stable condition
== END 2022-09-04 15:32 | disposition home health service (06) | DRG 871 ==
LOC: ER 09:52 → ED HOLD 17:23 → SUR 3N 22:09
PROVIDERS: ADMIT Family Medicine; ATTEND Family Medicine
PROC: 0F9030Z Drainage of Liver with Drainage Device, Percutaneous Approach (ICD-10-PCS; principal; 2022-08-31)
PROC: B32T1ZZ Computerized Tomography (CT Scan) of Left Pulmonary Artery using Low Osmolar Contrast (ICD-10-PCS; 2022-08-31)
PROC: B3201ZZ Computerized Tomography (CT Scan) of Thoracic Aorta using Low Osmolar Contrast (ICD-10-PCS; 2022-08-31)
PROC: B32S1ZZ Computerized Tomography (CT Scan) of Right Pulmonary Artery using Low Osmolar Contrast (ICD-10-PCS; 2022-08-31)
PROC: B4201ZZ Computerized Tomography (CT Scan) of Abdominal Aorta using Low Osmolar Contrast (ICD-10-PCS; 2022-08-31)
PROC: B4241ZZ Computerized Tomography (CT Scan) of Superior Mesenteric Artery using Low Osmolar Contrast (ICD-10-PCS; 2022-08-31)
PROC: B4281ZZ Computerized Tomography (CT Scan) of Bilateral Renal Arteries using Low Osmolar Contrast (ICD-10-PCS; 2022-08-31)
PROC: B42C1ZZ Computerized Tomography (CT Scan) of Pelvic Arteries using Low Osmolar Contrast (ICD-10-PCS; 2022-08-31)
PROC: B4211ZZ Computerized Tomography (CT Scan) of Celiac Artery using Low Osmolar Contrast (ICD-10-PCS; 2022-08-31)
PROC: 3E03317 Introduction of Other Thrombolytic into Peripheral Vein, Percutaneous Approach (ICD-10-PCS; 2022-09-03)
PROC: BW211ZZ Computerized Tomography (CT Scan) of Abdomen and Pelvis using Low Osmolar Contrast (ICD-10-PCS; 2022-09-03)
PROC: 3E03317 Introduction of Other Thrombolytic into Peripheral Vein, Percutaneous Approach (ICD-10-PCS; 2022-09-04)
DX: A41.9 Sepsis, unspecified organism (principal); E43 Unspecified severe protein-calorie malnutrition; J96.01 Acute respiratory failure with hypoxia; K75.0 Abscess of liver; C78.7 Secondary malignant neoplasm of liver and intrahepatic bile duct; E87.1 Hypo-osmolality and hyponatremia; Z20.822 Contact with and (suspected) exposure to COVID-19; K52.9 Noninfective gastroenteritis and colitis, unspecified; D63.8 Anemia in other chronic diseases classified elsewhere; N20.0 Calculus of kidney; E87.6 Hypokalemia; R65.20 Severe sepsis without septic shock; F17.210 Nicotine dependence, cigarettes, uncomplicated; Z96.653 Presence of artificial knee joint, bilateral; E66.9 Obesity, unspecified; Z68.32 Body mass index [BMI] 32.0-32.9, adult; Z79.899 Other long term (current) drug therapy
CPT/HCPCS: 36415; 49405; 71045; 71275; 74160; 74177; 80053; 81001; 83540; 83550; 83605; 83735; 84145; 85025; 87040; 87070; 87077; 87081; 87635; 93005; 99285; A4421; A4615; A6258; C1729; C1769; C9803; G0378; J0696; J2543; J2997; J3490; J7030; Q9967

== ENCOUNTER 2023-01-10 07:09 | Emergency (ER) | payer BC, OTHER ==
[~2023-01-10] VITALS: Ht 177.8 cm; Wt 109.1 kg
[~2023-01-10 07:09] MED LIST changes: +HYDR-3965 PO; -LEVO750T68 PO; -SAW450CA7 PO; +SAW500CA11 PO
[2023-01-10 07:59] LABS: CLARITY,URINE CLEAR (Clear); COLOR,URINE YELLOW (Yellow); GLUCOSE, URINE NEGATIVE (Neg); KETONES,URINE NEGATIVE (Neg); LEUKOCYTE ESTERASE ,URINE NEGATIVE (Neg); NITRITES, URINE NEGATIVE (Neg); OCCULT BLOOD,URINE SMALL (Neg); PROTEIN,URINE NEGATIVE (Neg); UROBILINOGEN,URINE 0.2 E.U/dL (0.2-1.0)
[2023-01-10 08:00] LABS: UA COLLECTION TYPE CLN CATCH MIDSTREAM
[2023-01-10 08:01] LABS: BASOPHILS % (AUTO) 0.4 % (0-1); EOSINOPHILS # (AUTO) 0.3 X10'3 (0-0.9); EOSINOPHILS % (AUTO) 3.1 % (0-6); HEMATOCRIT 42.4 % (42.0-52.0); HEMOGLOBIN 14.7 g/dl (14.0-17.9); LYMPHOCYTES # (AUTO) 1.9 X10'3 (1.1-4.8); LYMPHOCYTES % (AUTO) 19.9 % (21-51); MEAN CORPUSCULAR HEMOGLOBIN 32.3 PG (27.0-31.0); MEAN CORPUSCULAR HGB CONC 34.7 g/dL (33.0-36.5); MEAN CORPUSCULAR VOLUME 92.9 FL (78-98); MEAN PLATELET VOLUME 7.8 FL (7.4-10.4); MONOCYTES # (AUTO) 1.1 X10'3 (0-0.9); MONOCYTES % (AUTO) 12.1 % (2-12); NEUTROPHILS # (AUTO) 6.1 X10'3 (1.8-7.7); NEUTROPHILS % (AUTO) 64.5 % (42-75); PLATELET COUNT 224 X10'3 (140-440); RED BLOOD COUNT 4.56 X10'6 (4.70-6.10); RED CELL DISTRIBUTION WIDTH 12.6 % (11.5-14.5); WHITE BLOOD COUNT 9.4 X10'3 (4.5-11.0)
[2023-01-10 08:04] LABS: BACTERIA,URINE NONE SEEN /HPF (Neg); MUCUS STRANDS NONE SEEN /LPF (Neg); RBC,URINE 0-2 /HPF (0-2); SQUAMOUS EPITHELIAL CELL,UR NONE SEEN /LPF (FEW); WBC,URINE 0-4 /HPF (0-4)
[2023-01-10 08:12] LABS: ALANINE AMINOTRANSFERASE 29 U/L (12-78); ALBUMIN 3.6 G/DL (3.4-5.0); ANION GAP 9 (8-16); ASPARTATE AMINO TRANSFERASE 17 U/L (10-37); BILIRUBIN,TOTAL 0.7 MG/DL (0.1-1.0); BLOOD UREA NITROGEN 19 MG/DL (7-18); BUN/CREATININE RATIO 26.4 (5.4-32.0); CHLORIDE 106 MMOL/L (99-107); CREATININE 0.72 MG/DL (0.60-1.10); GLUCOSE 110 MG/DL (70-104); LIPASE < 50 U/L (73-393); SODIUM 140 MMOL/L (135-145); TOTAL CARBON DIOXIDE 25.5 MMOL/L (24-32); TOTAL PROTEIN 7.3 G/DL (6.4-8.2); eGFR > 90 ML/MIN
[2023-01-10 08:23] LABS: ALKALINE PHOSPHATASE 75 IU/L (46-116)
[2023-01-10] MEDS ORDERED: normal saline 1000ml 1,000 ML IV ONE (09:55)
[2023-01-10] MEDS ORDERED: iohexol 300mg/ml 100ml inj. ONE (10:13)
[2023-01-10 10:35] VITALS: BP 138/87
--- NOTE | 2023-01-10 10:50 | NUR ---
pt off to ct
--- NOTE | 2023-01-10 11:16 | NUR ---
pt back from ct. registration at bedside with pt.
[2023-01-10] MEDS ORDERED: AMOX-117 PO (12:13)
[2023-01-10] MEDS ORDERED: POLY119P2 PO (12:13)
[2023-01-10] MEDS ORDERED: polyethylene glycol 3350 17gm powd pack PO STA (12:14)
[2023-01-10] MEDS ORDERED: amox tr/potassium clavulanate 875/125mg TAB PO ONE (12:15)
== END 2023-01-10 12:49 | disposition home or self-care (01) ==
LOC: ER 07:09
DX: R10.32 Left lower quadrant pain (principal); K52.9 Noninfective gastroenteritis and colitis, unspecified; Z79.899 Other long term (current) drug therapy
CPT/HCPCS: 36415; 74177; 80053; 81001; 83690; 85025; 96360; 99285; J3490; J7030; Q9967

== ENCOUNTER 2024-03-12 08:55 | Emergency (ER) | payer OTHER ==
[~2024-03-12] VITALS: Ht 177.8 cm; Wt 113.0 kg
[~2024-03-12 08:55] MED LIST changes: -HYDR-3965 PO; +POLY119P2 PO
[2024-03-12 09:01] VITALS: TEMP 97.5
[2024-03-12 09:57] LABS: BASOPHILS % (AUTO) 0.5 % (0-1); EOSINOPHILS # (AUTO) 0.3 X10'3 (0-0.9); EOSINOPHILS % (AUTO) 4.9 % (0-6); HEMATOCRIT 45.2 % (42.0-52.0); HEMOGLOBIN 15.6 g/dl (14.0-17.9); LYMPHOCYTES # (AUTO) 2.1 X10'3 (1.1-4.8); LYMPHOCYTES % (AUTO) 34.6 % (21-51); MEAN CORPUSCULAR HEMOGLOBIN 33.2 PG (27.0-31.0); MEAN CORPUSCULAR HGB CONC 34.5 g/dL (33.0-36.5); MEAN CORPUSCULAR VOLUME 96.3 FL (78-98); MEAN PLATELET VOLUME 8.3 FL (7.4-10.4); MONOCYTES # (AUTO) 0.6 X10'3 (0-0.9); MONOCYTES % (AUTO) 10.6 % (2-12); NEUTROPHILS % (AUTO) 49.4 % (42-75); PLATELET COUNT 188 X10'3 (140-440); RED BLOOD COUNT 4.69 X10'6 (4.70-6.10); RED CELL DISTRIBUTION WIDTH 12.5 % (11.5-14.5); WHITE BLOOD COUNT 6.1 X10'3 (4.5-11.0)
[2024-03-12 10:10] LABS: ALBUMIN 3.6 G/DL (3.4-5.0); ANION GAP 9 (8-16); BLOOD UREA NITROGEN 20 MG/DL (7-18); BUN/CREATININE RATIO 28.6 (10.0-20.0); CALCIUM 8.5 MG/DL (8.5-10.1); CHLORIDE 106 MMOL/L (99-107); GLUCOSE 113 MG/DL (70-104); POTASSIUM 3.8 MMOL/L (3.5-5.1); PRO BRAIN NATRIURETIC PEPTIDE 47 PG/ML (0-125); SODIUM 139 MMOL/L (135-145); TOTAL CARBON DIOXIDE 24.3 MMOL/L (24-32); eCRCL 107 ML/MIN; eGFR > 90 ML/MIN
[2024-03-12 13:35] VITALS: BP 145/96; PULSE 78; RESP 16; O2SAT 98
== END 2024-03-12 13:37 | disposition home or self-care (01) ==
LOC: ER 08:55
DX: R07.89 Other chest pain (principal); I50.9 Heart failure, unspecified; Z88.6 Allergy status to analgesic agent; Z88.5 Allergy status to narcotic agent; Z79.899 Other long term (current) drug therapy
CPT/HCPCS: 36415; 71045; 80048; 83880; 84484; 85025; 93005; 99285

== ENCOUNTER 2024-08-15 12:43 | Emergency (ER) | payer OTHER ==
[~2024-08-15] VITALS: Ht 177.8 cm; Wt 111.5 kg
[2024-08-15 13:09] VITALS: BP 138/65; PULSE 81; TEMP 97.8; O2SAT 96
[2024-08-15 15:12] LABS: BILIRUBIN,URINE NEGATIVE (Neg); CLARITY,URINE CLEAR (Clear); COLOR,URINE YELLOW (Yellow); GLUCOSE, URINE NEGATIVE (Neg); KETONES,URINE NEGATIVE (Neg); LEUKOCYTE ESTERASE ,URINE NEGATIVE (Neg); NITRITES, URINE NEGATIVE (Neg); OCCULT BLOOD,URINE NEGATIVE (Neg); PH,URINE 7.5 (4.8-8.0); PROTEIN,URINE NEGATIVE (Neg); UROBILINOGEN,URINE 0.2 E.U/dL (0.2-1.0)
[2024-08-15 15:15] LABS: UA COLLECTION TYPE CLN CATCH MIDSTREAM
[2024-08-15] MEDS ORDERED: FLO0.4C PO (15:53)
[2024-08-15 16:00] VITALS: RESP 20
== END 2024-08-15 16:03 | disposition home or self-care (01) ==
LOC: ER 12:44
DX: N40.1 Benign prostatic hyperplasia with lower urinary tract symptoms (principal); R33.9 Retention of urine, unspecified; Z88.5 Allergy status to narcotic agent
CPT/HCPCS: 81003; 99283

== ENCOUNTER 2024-09-27 15:17 | Emergency (ER) | payer OTHER ==
[~2024-09-27] VITALS: Ht 177.8 cm; Wt 112.7 kg
[2024-09-27 15:24] VITALS: TEMP 97.8
[2024-09-27] MEDS: predniSONE 20 mg tablet PO STA ×2 (17:26→22:33)
[2024-09-27 18:55] LABS: BASOPHILS % (AUTO) 0.6 % (0-1); EOSINOPHILS # (AUTO) 0.3 X10'3 (0-0.9); EOSINOPHILS % (AUTO) 4.1 % (0-6); HEMATOCRIT 45.7 % (42.0-52.0); HEMOGLOBIN 15.8 g/dl (14.0-17.9); LYMPHOCYTES # (AUTO) 2.3 X10'3 (1.1-4.8); LYMPHOCYTES % (AUTO) 35.2 % (21-51); MEAN CORPUSCULAR HGB CONC 34.6 g/dL (33.0-36.5); MEAN CORPUSCULAR VOLUME 95.5 FL (78-98); MEAN PLATELET VOLUME 8.2 FL (7.4-10.4); MONOCYTES # (AUTO) 0.9 X10'3 (0-0.9); NEUTROPHILS % (AUTO) 46.1 % (42-75); PLATELET COUNT 189 X10'3 (140-440); RED BLOOD COUNT 4.79 X10'6 (4.70-6.10); RED CELL DISTRIBUTION WIDTH 12.5 % (11.5-14.5); WHITE BLOOD COUNT 6.5 X10'3 (4.5-11.0)
[2024-09-27 19:03] LABS: ALANINE AMINOTRANSFERASE 20 U/L (12-78); ALBUMIN 3.9 G/DL (3.4-5.0); ALBUMIN/GLOBULIN RATIO 0.9 (1.1-1.5); ALKALINE PHOSPHATASE 63 IU/L (46-116); ANION GAP 10 (8-16); ASPARTATE AMINO TRANSFERASE 19 U/L (10-37); BILIRUBIN,TOTAL 0.7 MG/DL (0.1-1.0); BLOOD UREA NITROGEN 14 MG/DL (7-18); BUN/CREATININE RATIO 16.9 (10.0-20.0); CALCIUM 8.6 MG/DL (8.5-10.1); CHLORIDE 105 MMOL/L (99-107); CREATININE 0.83 MG/DL (0.60-1.10); GLUCOSE 85 MG/DL (70-104); SODIUM 140 MMOL/L (135-145); TOTAL CARBON DIOXIDE 24.9 MMOL/L (24-32); TOTAL PROTEIN 8.1 G/DL (6.4-8.2); eCRCL 89 ML/MIN; eGFR > 90 ML/MIN
[2024-09-27 19:04] LABS: C-REACTIVE PROTEIN 0.46 MG/DL (0.0-0.5)
[2024-09-27 19:15] VITALS: BP 122/81; PULSE 68; RESP 18; O2SAT 98
== END 2024-09-28 03:13 | disposition home or self-care (01) ==
LOC: ER 15:18
DX: M54.32 Sciatica, left side (principal); Z88.5 Allergy status to narcotic agent; Z98.890 Other specified postprocedural states; Z88.6 Allergy status to analgesic agent; I50.9 Heart failure, unspecified; Z85.118 Personal history of other malignant neoplasm of bronchus and lung
CPT/HCPCS: 36415; 72110; 72148; 80053; 85025; 86140; 99284; J7512

== ENCOUNTER 2025-05-09 02:08 | Emergency (ER) | payer MEDICARE, OTHER ==
[~2025-05-09] VITALS: Ht 177.8 cm; Wt 114.2 kg
--- NOTE | 2025-05-09 02:26 | Physician Documentation ---
History of Present Illness ~ Chief Complaint: Abdominal Pain Stated Complaint: LEFT ABD PAIN Time Seen by MD: 02:25 Primary Medical Doctor: [facility] Patient presents to the emergency room for evaluation of left lower quadrant pain that began this evening. Patient did not take any pain medication for it but he states that has improved since he was at home in his declining pain medication at this time. He states that he believes it feels like diverticulitis from a tomato he ate yesterday. Patient does have history of kidney stones but states this is not feel like a kidney stone. Bowel movements normal urination normal. Medication Reconciliation Allergies: Coded Allergies: No Known Allergies (Unverified , 05/09/25) Scheduled Polyethylene Glycol 3350 (Miralax), 17 GM PO DAILY Saw [place] (Saw [place]), 1,000 MG PO DAILY, (Reported) Past Medical History Past Medical History: Hernia Past Surgical History: orthopedic surgeries, other Other Past Surgical History: Hernia surgery Patient History: Congestive hear failure Oat cell carcinoma Alcohol Use: None Drug Use: none Lives In: Home Review of Systems ROS All review of systems negative except as per HPI Physical Exam Vital Signs: Temperature: 97.8, Source: Oral, Heart Rate: 73, Respiratory Rate: 16, BP: 140/84, Pulse Oximetry: 96, Weight: 114.250 Oxygen Flow Rate: 0 Physical Exam General: Patient is awake, alert, oriented x4 in mild distress Head: Normocephalic and atraumatic. Eyes: Conjunctival normal. EOMI. PERRL. ENT: Mucous membranes moist. Neck: Supple, trachea is midline. Chest: Clear to auscultation bilaterally without rales, rhonchi, or wheezes. There is no accessory muscle use or retractions. Cardiac: RRR without murmurs, gallops, or rubs. Abd: Soft, nondistended, left-sided abdominal tenderness to palpation without peritonitis Progress Results/Orders Results/Orders Orders - STANISLAW VAN MD Ct Abdomen Pelvis (05/09/25 02:49) Completed Orders - STANISLAW VAN MD Cbc/Diff (05/09/25 02:21) BMP (05/09/25 02:21) Lipase (05/09/25 02:21) CMP (05/09/25 02:21) Ct Abdomen Pelvis (05/09/25 02:49) Ondansetron Inj. (Zofran 4mg/2ml Vial) (05/09/25 03:20) Morphine 4mg/Ml Inj. (Morphine Inj.) (05/09/25 03:20) Ketorolac Trometh 15mg/Ml Vial (Toradol (05/09/25 03:20) Ua W/Microscopic, Cult If Ind (05/09/25 03:25) Medications Received in ER Medications (Trade) Dose Ordered Sig/Luana Route PRN Reason Start Time Stop Time Status Last Admin Dose Admin (Zofran 4mg/2ml vial) 4 mg ONCE ONCE IV 05/09/25 03:20 05/09/25 03:21 DC 05/09/25 03:21 4 MG (morphine inj.) 4 mg ONCE ONCE IV 05/09/25 03:20 05/09/25 03:21 DC 05/09/25 03:21 4 MG (Toradol injection) 15 mg ONCE ONCE IV 05/09/25 03:20 05/09/25 03:21 DC 05/09/25 03:22 15 MG Vital Signs 05/09/25 05/09/25 05/09/25 05/09/25 02:16 02:34 03:21 03:22 Temp 97.8 Pulse 73 Resp 16 16 16 B/P (MAP) 140/84 Pulse Ox 96 O2 Flow Rate 0 Laboratory Tests Test 05/09/25 02:29 05/09/25 03:25 White Blood Count 6.9 Red Blood Count 4.57 L Hemoglobin 14.9 Hematocrit 42.9 Mean Corpuscular Volume 93.9 Mean Corpuscular Hemoglobin 32.7 H Mean Corpuscular Hemoglobin Concent 34.8 Red Cell Distribution Width 12.7 Platelet Count 184 Mean Platelet Volume 8.0 Neutrophils (%) (Auto) 56.4 Lymphocytes (%) (Auto) 28.4 Monocytes (%) (Auto) 9.9 Eosinophils (%) (Auto) 4.7 Basophils (%) (Auto) 0.6 Neutrophils # (Auto) 3.9 Lymphocytes # (Auto) 2.0 Monocytes # (Auto) 0.7 Eosinophils # (Auto) 0.3 Basophils # (Auto) 0.0 CBC Comment Sodium Level 139 Potassium Level 3.9 Chloride Level 107 Carbon Dioxide Level 24.4 Anion Gap 8 Blood Urea Nitrogen 24 H Creatinine 1.06 Estimated GFR/1.73 m2 70 BUN/Creatinine Ratio 22.6 H Glucose Level 111 H Calcium Level 8.3 L Total Bilirubin 0.5 Aspartate Amino Transf (AST/SGOT) 15 Alanine Aminotransferase (ALT/SGPT) 26 Alkaline Phosphatase 64 Total Protein 7.0 Albumin 3.6 Globulin 3.4 Albumin/Globulin Ratio 1.1 Lipase 38 Chemistry Comments Urine Specimen Description Cln catch midstream Urine Color Yellow Urine Clarity Clear Urine pH 6.0 Urine Specific [place] 1.020 Urine Protein Negative Urine Glucose (UA) Negative Urine Ketones Negative Urine Occult Blood Large H Urine Nitrite Negative Urine Bilirubin Negative Urine Urobilinogen 0.2 Urine Leukocyte Esterase Negative Urine RBC 10-20 Urine WBC 0-4 Urine Squamous Epithelial Cells None seen Urine Bacteria None seen Urine Culture Indicated Not ind Volume Urine Centrifuged 10 ml Urine Comment Medical Decision Making Findings Patient presents to the emergency room for evaluation of abdominal pain as per HPI. Differentials include but are not limited to kidney stone diverticulitis pancreatitis appendicitis small-bowel obstruction therefore emergent labs and imaging indicated. CT scan findings shows kidney stone along with hematuria believe he is suffering from kidney stones. No evidence of acute kidney injury or urinary tract infection and patient's pain that has controlled. ER precautions discussed Departure Disposition: 01 HOME / SELF CARE / HOMELESS Impression: Primary Impression: Kidney stone Condition: Stable Discharge Instructions: Kidney Stones Referrals: NO PRIMARY CARE PROVIDER (PCP) Prescriptions Tamsulosin Hcl* (Flomax*) 0.4 Mg Cap.sr.24h 1 CAP PO DAILY, #10 CAP Prov: STANISLAW VAN MD 05/09/25 Ondansetron 8mg ODT (Ondansetron Odt) 8 Mg Tab.rapdis 1 TAB PO Q6H for nausea/vomiting for 3 Days, #12 TAB 0 Refills Prov: STANISLAW VAN MD 05/09/25 Hydrocodone Bit/Acetaminophen 5/325 MG (Egan 5/325 MG) 5 Mg/325 Mg Tablet 1-2 TAB PO Q4-6 hours PRN for Pain , #12 TAB Prov: STANISLAW VAN MD 05/09/25 Education Educated: Patient Educated regarding: diagnosis, treatment, need for follow up Signature Scribe Signature: No scribe Attestation: The note accurately reflects work and decisions made by me.Stanislaw Van MD 05/09/25 04:36 STANISLAW VAN MD May 09, 2025 02:26
[2025-05-09 02:35] LABS: MEAN PLATELET VOLUME 8.0 FL (7.4-10.4); RED CELL DISTRIBUTION WIDTH 12.7 % (11.5-14.5)
[2025-05-09 02:53] LABS: CREATININE 1.06 MG/DL (0.60-1.10); TOTAL CARBON DIOXIDE 24.4 MMOL/L (24-32); eCRCL 70 ML/MIN; eGFR 70 ML/MIN
[2025-05-09] MEDS: morphine 4 MG/ML inj SYRINge IV ONE (03:21)
[2025-05-09] MEDS: ondansetron/PF 4mg/2ml inj IV ONE (03:21)
[2025-05-09] MEDS: ketorolac trometh 15mg/ml vial 15 MG/ML ML IV ONE ×2 (03:22→04:59)
[2025-05-09 03:41] LABS: LEUKOCYTE ESTERASE ,URINE NEGATIVE (Neg); NITRITES, URINE NEGATIVE (Neg); OCCULT BLOOD,URINE LARGE (Neg)
[2025-05-09 03:42] LABS: UA COLLECTION TYPE CLN CATCH MIDSTREAM
[2025-05-09 03:47] LABS: SQUAMOUS EPITHELIAL CELL,UR NONE SEEN /LPF (FEW)
--- NOTE | 2025-05-09 04:23 | RADIOLOGY REPORT ---
Exam: CT CT ABDOMEN PELVIS History: abd pain llq Comparison Study: CT ABDOMEN PELVIS on DOS: 01/10/23, CT ABDOMEN PELVIS on DOS: 08/16/22 Technique: Multidetector spiral CT of the abdomen was performed from lung bases to pubic symphysis. I maging was performed without IV contrast. Axial, coronal and sagittal multiplanar reformats were obta ined from the axial data set by the technologist. Radiation Dose : 1. Abdomen/Pelvis: CTDIvol 33.98 mGy, DLP 2011.32 mGy*cm. Findings: Evaluation of solid organs is limited due to lack of intravenous contrast use. Lung Bases: Mild bibasilar atelectasis. No acute or significant lung base finding. Normal heart size . No pleural or pericardial effusion. Liver: The liver is normal in size. Benign-appearing hepatic cysts within the left lobe measure up to 1.9 cm. No focal lesions. Gallbladder and Biliary Tree: Unremarkable Spleen: Granulomatous calcification. Otherwise, unremarkable. Pancreas: Moderate diffuse fatty replacement of the pancreatic parenchyma. Adrenal Glands: Unremarkable Kidneys: Moderate left hydroureteronephrosis and perinephric stranding secondary to at least 2 calcul i within the course of the ureter, the 1st of which is punctate measuring approximately 2 mm distally and the 2nd of which lies just within the urinary bladder measuring approximately 5 mm. Additional n onobstructing bilateral pelvocaliceal calculi are noted. There is no evidence of right hydronephrosi s. Bladder: Grossly unremarkable for degree of distention. Bowel: The stomach is grossly normal in appearance. Small bowel and colon are normal in caliber and d istribution. Diverticulosis coli without CT evidence of acute diverticulitis. The appendix is normal. Ascites: Absent Lymphadenopathy: No mesenteric, retroperitoneal or periportal lymphadenopathy. Abdominal Wall and Mesentery: Unremarkable. Vasculature: The visualized abdominal aorta is normal in size and caliber. Atherosclerotic vascular c alcifications. Evaluation of abdominal and pelvic vessels is limited due to lack of intravenous cont rast. Pelvic Organs: Unremarkable. Left fat containing inguinal hernia. Musculoskeletal: No aggressive focal bony lesions, acute fractures or dislocation. IMPRESSION: 1. Moderate left hydroureteronephrosis secondary to at least 2 partially obstructing calculi within t he course of the ureter and/or just beyond the ureterovesicular junction, within the urinary bladder lumen. Additional nonobstructing bilateral pelvocaliceal calculi noted. 2. Diffuse fatty replacement of the pancreatic parenchyma. 3. Diverticulosis coli without CT evidence of acute diverticulitis. Radiation optimization: All CT scans at this facility use at least one of these dose optimization mynor hniques: automated exposure control mA and/or kV adjustment per patient size (includes targeted exam s where dose is matched to clinical indication) or iterative reconstruction.
[2025-05-09] MEDS ORDERED: ONDA-245 PO (04:36)
[2025-05-09] MEDS ORDERED: TAMS-55 PO (04:36)
[2025-05-09] MEDS ORDERED: HYDR-3965 PO (04:36)
[2025-05-09 05:03] VITALS: BP 134/88; PULSE 80; RESP 16; TEMP 98.1; O2SAT 99
== END 2025-05-09 05:07 | disposition home or self-care (01) ==
LOC: ER 02:09
DX: N20.0 Calculus of kidney (principal); Z87.442 Personal history of urinary calculi; Z79.899 Other long term (current) drug therapy
CPT/HCPCS: 36415; 74176; 80053; 81001; 83690; 85025; 96374; 96375; 96376; 99285; J1885; J2270; J2405